=== PATIENT | male | born 1960 | race Caucasian/White ===

== ENCOUNTER 2024-06-04 15:47 | Emergency (ER) | payer OTHER, SELFPAY ==
[2024-06-04] VITALS (13 sets, daily range): BP systolic 107–123; BP diastolic 57–82; PULSE 89–113; RESP 12–20; TEMP 36.8–37.7; O2SAT 95–97; BMI 29.4
--- NOTE | 2024-06-04 16:33 | EKG_ITS ---
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
[2024-06-04 16:40] LABS: Add Manual Diff / Slide Review NO; Basophils Absolute Auto 100 /uL (0-100); Basophils Percent Auto 0.8 % (0-2); Eosinophils Absolute Auto 100 /uL (0-450); Eosinophils Percent Auto 0.6 % (2-4); Hematocrit 37.8 % (41-53); Hemoglobin 12.6 g/dL (13.5-17.5); Lymphocytes Absolute Auto 400 /uL (1100-4500); Lymphocytes Percent Auto 4.1 % (25-40); Mean Corpuscular HGB Conc 33.4 % (30-36); Mean Corpuscular Hemoglobin 30.5 PG (26-34); Mean Corpuscular Volume 91.3 fL (80-100); Monocytes Absolute Auto 800 /uL (0-900); Monocytes Percent Auto 7.3 % (3-14); Neutrophils Absolute Auto 9200 /uL (1500-7000); Neutrophils Percent Auto 87.2 % (50-75); Platelet Count 136 X10^3/uL (150-400); Red Blood Cell Count 4.14 X10^6/uL (4.5-5.9); Red Cell Distribution Width 14.7 % (11.6-14.8); White Blood Cell Count 10.6 X10^3/uL (4.5-11.0)
[2024-06-04 16:44] LABS: Alanine Aminotransferase 318 IU/L (<50); Albumin 3.9 g/dL (3.5-5.0); Alkaline Phosphatase 521 U/L (38-126); Aspartate Aminotransferase 140 IU/L (17-59); BUN Creatinine Ratio 21.3 (6-22); Bilirubin Total 4.2 mg/dL (0.2-1.3); Blood Urea Nitrogen 17 mg/dL (9-20); Calcium 8.5 mg/dL (8.4-10.2); Carbon Dioxide 23 mmol/L (22-32); Chloride 105 mmol/L (98-107); Estimated Glomerular Filt Rate > 60 mL/min (>60); Globulin 3.8 g/dL (1.7-4.1); Glucose 112 mg/dL (80-110); HEMOLYSIS 19 (0-50); Lipase 99 U/L (23-300); Potassium 4.1 mmol/L (3.4-5.1); Sodium 133 mmol/L (137-145); Total Protein 7.7 g/dL (6.3-8.2)
--- NOTE | 2024-06-04 17:44 | DI.CT.S_ITS ---
PROCEDURE: CT ABDOMEN PELVIS W CON INDICATIONS: chills, rigors, hepatic stent r and left ercp 05/29 TECHNIQUE: After the administration of intravenous contrast, axial sections acquired from the lung bases to the pubic symphysis. Coronal and sagittal reformats were performed. For radiation dose reduction, the following was used: automated exposure control, adjustment of mA and/or kV according to patient size. COMPARISON: [facility], MR, MR ABDOMEN MRCP, 02/27/2020, 13:08. FINDINGS: Image quality: Diagnostic Lower chest: Lung bases are unremarkable. Scattered scarring/atelectasis is present. Mildly patulous distal esophagus. Heart size Liver: Scattered cysts. Some of the cysts may have calcifications, for example on image 2/32. Attention on follow-up. Gallbladder and biliary system: Gallbladder is absent. Right and left biliary stents are present. There is moderate intrahepatic dilation. Pancreas: No ductal dilation Spleen: Nonenlarged Adrenals: No discrete nodules Kidneys: No solid mass or hydronephrosis Vessels and lymph nodes: The main portal vein appears diminutive at the bifurcation. No abdominal aortic aneurysm. No pathologic lymph nodes by size criteria in the field of view Bowel and peritoneum: No evidence of small bowel obstruction. Small hiatal hernia. No pathologic ascites. Nondilated appendix Body wall: Fat containing right inguinal and umbilical hernias. There is fluid in the right inguinal canal. Nonspecific fat stranding is seen in the right deep inguinal region, possibly representing inflammatory edema or postsurgical changes, correlate with history. Pelvis: Bladder is unremarkable. Prostate is not well evaluated on this study Bones: No acute or suspicious osseous finding. There are degenerative changes. IMPRESSION: Left and right biliary stents are present. There is moderate intrahepatic dilation. Cholangitis is possible. Correlate with any hilar obstructing mass. Liver cysts are present. The main portal vein is diminutive at the portal confluence. Consider abdominal MRI for follow-up. Other findings as above. Dictated by: Jeffery Brumfield M.D. on 06/04/2024 at 19:00 Approved by: Jeffery Brumfield M.D. on 06/04/2024 at 19:10
--- NOTE | 2024-06-04 17:48 | ED.RECABL ---
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 at [facility]. Patient has been tolerating well since. He has completed his oral amount Augmentin prescription. Patient states today started to have rigors felt like he was having chills. Had some increased pain. He states he feels much better at this time. Denies any abdominal back or flank pain, denies any nausea or vomiting. Denies any GI or urinary symptoms. States he does not feel like he is more jaundiced. Patient states he is supposed to return proximally a month to have an exchange of his stents. He states his only medication currently is for cholesterol. Allergy to codeine. No tobacco, positive for EtOH, no recreational drugs. Primary care is SHAR[facility] Ro[facility]. Related Data Home Medications Medication Instructions Recorded Confirmed pravastatin 40 mg tablet 40 mg PO BEDTIME 06/09/24 06/09/24 Previous Rx's Medication Instructions Recorded levofloxacin 750 mg tablet 750 mg PO DAILY #10 tabs 06/10/24 Allergies Allergy/AdvReac Type Severity Reaction Status Date / Time codeine Allergy Verified 06/04/24 15:57 Review of Systems <DO Fouzia Rivera Last Filed: 06/14/24 07:29> Review of Systems ROS Unobtainable: All systems reviewed & are unremarkable except as noted in HPI and below Patient History <DO Fouzia Rivera Last Filed: 06/14/24 07:29> Social History household members: spouse Smoking Status: Former smoker alcohol intake: never Smoking Status: Never smoker alcohol intake frequency: other Substance Use Type: does not use Exam <DO Fouzia Rivera Last Filed: 06/14/24 07:29> Narrative Exam Narrative: GENERAL: Alert and oriented x three, jaundiced male in mild distress. HEENT: Head normocephalic, atraumatic, scleral icterus, EOMI, pupils reactive, face symmetric, moist mucous membranes NECK: Supple, full range of motion CARDIOVASCULAR: Regular rate and rhythm without murmurs, rubs or gallops. RESPIRATORY: Breath sounds equal bilaterally, no wheezes rales or rhonchi. ABDOMEN: Soft, nontender. Normoactive bowel sounds all 4 quadrants. No guarding or rebound, rigidity, no mass : No CVA tenderness EXTREMITIES: Normal range of motion, no clubbing or edema. Neurovascularly intact NEUROLOGICAL: Cranial nerves II through XII grossly intact. Moving all extremities SKIN: Warm, dry, no petechiae, no rashes or lesions. Initial Vital Signs Initial Vital Signs: Vital Signs Temperature 99.8 F H 06/04/24 15:52 Pulse Rate 113 H 06/04/24 15:52 Respiratory Rate 18 06/04/24 15:52 Blood Pressure 123/71 06/04/24 15:52 Pulse Oximetry 97 06/04/24 15:52 Oxygen Delivery Method Room Air 06/04/24 15:52 <Poonam Coyne MD - Last Filed: 06/06/24 01:31> Initial Vital Signs Initial Vital Signs: Vital Signs Temperature 99.8 F H 06/04/24 15:52 Pulse Rate 113 H 06/04/24 15:52 Respiratory Rate 18 06/04/24 15:52 Blood Pressure 123/71 06/04/24 15:52 Pulse Oximetry 97 06/04/24 15:52 Oxygen Delivery Method Room Air 06/04/24 15:52 <Kelli Torrez DO - Last Filed: 06/08/24 19:55> Initial Vital Signs Initial Vital Signs: Vital Signs Temperature 99.8 F H 06/04/24 15:52 Pulse Rate 113 H 06/04/24 15:52 Respiratory Rate 18 06/04/24 15:52 Blood Pressure 123/71 06/04/24 15:52 Pulse Oximetry 97 06/04/24 15:52 Oxygen Delivery Method Room Air 06/04/24 15:52 Course <DO Fouzia Rivera Last Filed: 06/14/24 07:29> Orders Ordered: Discontinued Medications Sodium Chloride (Normal Saline 0.9%) 1,000 mls @ 1,000 mls/hr IV BOLUS ONE Stop: 06/04/24 18:37 Last Infusion: 06/04/24 19:46 Dose: Infused Documented By: Admin: 06/04/24 17:53 Dose: 1,000 mls/hr Documented By: TD Ondansetron HCl (Ondansetron 4 Mg/2 Ml Inj) 4 mg IV NOW PRN PRN Reason: Nausea And Vomiting Ondansetron HCl (Ondansetron 4 Mg Odt) 4 mg PO NOW PRN PRN Reason: Nausea And Vomiting Vital Signs Vital signs: Vital Signs - 8 hr 06/04/24 15:52 06/04/24 16:07 06/04/24 16:13 Temperature 99.8 F H Pulse Rate 113 H 104 H 98 H Respiratory Rate 18 12 Blood Pressure 123/71 Pulse Oximetry 97 96 96 Oxygen Delivery Method Room Air 06/04/24 16:13 06/04/24 16:30 06/04/24 16:30 Temperature Pulse Rate 97 H Respiratory Rate 15 Blood Pressure 116/66 111/82 Pulse Oximetry 97 Oxygen Delivery Method 06/04/24 17:00 06/04/24 17:00 06/04/24 17:30 Temperature Pulse Rate 98 H 95 H Respiratory Rate 15 19 Blood Pressure 110/62 Pulse Oximetry 97 96 Oxygen Delivery Method 06/04/24 17:30 06/04/24 17:50 06/04/24 18:00 Temperature 98.2 F Pulse Rate 92 H Respiratory Rate 20 Blood Pressure 107/60 Pulse Oximetry 96 Oxygen Delivery Method 06/04/24 18:00 06/04/24 18:30 06/04/24 19:00 Temperature Pulse Rate 93 H 91 H Respiratory Rate 13 17 Blood Pressure 113/57 L Pulse Oximetry 96 95 Oxygen Delivery Method 06/04/24 19:30 06/04/24 19:43 06/04/24 19:43 Temperature Pulse Rate 91 H 89 Respiratory Rate 17 19 Blood Pressure 108/61 Pulse Oximetry 96 97 Oxygen Delivery Method Room Air <Poonam Coyne MD - Last Filed: 06/06/24 01:31> Orders Ordered: Discontinued Medications Sodium Chloride (Normal Saline 0.9%) 1,000 mls @ 1,000 mls/hr IV BOLUS ONE Stop: 06/04/24 18:37 Last Infusion: 06/04/24 19:46 Dose: Infused Documented By: Admin: 06/04/24 17:53 Dose: 1,000 mls/hr Documented By: TD Ondansetron HCl (Ondansetron 4 Mg/2 Ml Inj) 4 mg IV NOW PRN PRN Reason: Nausea And Vomiting Ondansetron HCl (Ondansetron 4 Mg Odt) 4 mg PO NOW PRN PRN Reason: Nausea And Vomiting Vital Signs Vital signs: Vital Signs - 8 hr 06/04/24 15:52 06/04/24 16:07 06/04/24 16:13 Temperature 99.8 F H Pulse Rate 113 H 104 H 98 H Respiratory Rate 18 12 Blood Pressure 123/71 Pulse Oximetry 97 96 96 Oxygen Delivery Method Room Air 06/04/24 16:13 06/04/24 16:30 06/04/24 16:30 Temperature Pulse Rate 97 H Respiratory Rate 15 Blood Pressure 116/66 111/82 Pulse Oximetry 97 Oxygen Delivery Method 06/04/24 17:00 06/04/24 17:00 06/04/24 17:30 Temperature Pulse Rate 98 H 95 H Respiratory Rate 15 19 Blood Pressure 110/62 Pulse Oximetry 97 96 Oxygen Delivery Method 06/04/24 17:30 06/04/24 17:50 06/04/24 18:00 Temperature 98.2 F Pulse Rate 92 H Respiratory Rate 20 Blood Pressure 107/60 Pulse Oximetry 96 Oxygen Delivery Method 06/04/24 18:00 06/04/24 18:30 06/04/24 19:00 Temperature Pulse Rate 93 H 91 H Respiratory Rate 13 17 Blood Pressure 113/57 L Pulse Oximetry 96 95 Oxygen Delivery Method 06/04/24 19:30 06/04/24 19:43 06/04/24 19:43 Temperature Pulse Rate 91 H 89 Respiratory Rate 17 19 Blood Pressure 108/61 Pulse Oximetry 96 97 Oxygen Delivery Method Room Air <Kelli Torrez DO - Last Filed: 06/08/24 19:55> Orders Ordered: Discontinued Medications Sodium Chloride (Normal Saline 0.9%) 1,000 mls @ 1,000 mls/hr IV BOLUS ONE Stop: 06/04/24 18:37 Last Infusion: 06/04/24 19:46 Dose: Infused Documented By: Admin: 06/04/24 17:53 Dose: 1,000 mls/hr Documented By: TD Ondansetron HCl (Ondansetron 4 Mg/2 Ml Inj) 4 mg IV NOW PRN PRN Reason: Nausea And Vomiting Ondansetron HCl (Ondansetron 4 Mg Odt) 4 mg PO NOW PRN PRN Reason: Nausea And Vomiting Vital Signs Vital signs: Vital Signs - 8 hr 06/04/24 15:52 06/04/24 16:07 06/04/24 16:13 Temperature 99.8 F H Pulse Rate 113 H 104 H 98 H Respiratory Rate 18 12 Blood Pressure 123/71 Pulse Oximetry 97 96 96 Oxygen Delivery Method Room Air 06/04/24 16:13 06/04/24 16:30 06/04/24 16:30 Temperature Pulse Rate 97 H Respiratory Rate 15 Blood Pressure 116/66 111/82 Pulse Oximetry 97 Oxygen Delivery Method 06/04/24 17:00 06/04/24 17:00 06/04/24 17:30 Temperature Pulse Rate 98 H 95 H Respiratory Rate 15 19 Blood Pressure 110/62 Pulse Oximetry 97 96 Oxygen Delivery Method 06/04/24 17:30 06/04/24 17:50 06/04/24 18:00 Temperature 98.2 F Pulse Rate 92 H Respiratory Rate 20 Blood Pressure 107/60 Pulse Oximetry 96 Oxygen Delivery Method 06/04/24 18:00 06/04/24 18:30 06/04/24 19:00 Temperature Pulse Rate 93 H 91 H Respiratory Rate 13 17 Blood Pressure 113/57 L Pulse Oximetry 96 95 Oxygen Delivery Method 06/04/24 19:30 06/04/24 19:43 06/04/24 19:43 Temperature Pulse Rate 91 H 89 Respiratory Rate 17 19 Blood Pressure 108/61 Pulse Oximetry 96 97 Oxygen Delivery Method Room Air MDM - Recheck/Abnormal Lab/Rx <Poonam Chao DO - Last Filed: 06/14/24 07:29> Lab Data 06/04/24 16:10 06/04/24 16:10 Labs: Lab Results 06/04/24 Range/Units 16:10 WBC 10.6 (4.5-11.0) X10^3/uL RBC 4.14 L (4.5-5.9) X10^6/uL Hgb 12.6 L (13.5-17.5) g/dL Hct 37.8 L (41-53) % MCV 91.3 (80-100) fL MCH 30.5 (26-34) PG MCHC 33.4 (30-36) % RDW 14.7 (11.6-14.8) % Plt Count 136 L (150-400) X10^3/uL Neut % (Auto) 87.2 H (50-75) % Lymph % (Auto) 4.1 L (25-40) % [place] % (Auto) 7.3 (3-14) % Eos % (Auto) 0.6 L (2-4) % Baso % (Auto) 0.8 (0-2) % Neut # (Auto) 9200 H (2361-9618) /uL Lymph # (Auto) 400 L (7893-6385) /uL [place] # (Auto) 800 (0-900) /uL Eos # (Auto) 100 (0-450) /uL Baso # (Auto) 100 (0-100) /uL Sodium 133 L (137-145) mmol/L Potassium 4.1 (3.4-5.1) mmol/L Chloride 105 (98-107) mmol/L Carbon Dioxide 23 (22-32) mmol/L BUN 17 (9-20) mg/dL Creatinine 0.80 (0.66-1.25) mg/dL Estimated GFR > 60 (>60) mL/min BUN/Creatinine Ratio 21.3 (6-22) Glucose 112 H (80-110) mg/dL Lactate 1.2 (0.7-2.1) mmol/L Calcium 8.5 (8.4-10.2) mg/dL Total Bilirubin 4.2 H (0.2-1.3) mg/dL AST 140 H (17-59) IU/L ALT 318 H (<50) IU/L Alkaline Phosphatase 521 H (38-126) U/L Total Protein 7.7 (6.3-8.2) g/dL Albumin 3.9 (3.5-5.0) g/dL Globulin 3.8 (1.7-4.1) g/dL Albumin/Globulin Ratio 1.0 (1.0-2.8) Lipase 99 (23-300) U/L Procalcitonin 0.254 (<0.5) ng/mL Urine Dip Bedside Urine Glucose Negative Bedside Urine Bilirubin - Negative Bedside Urine Ketone - Negative Urine Specific [place] 1.015 Bedside Urine Occult Blood - Negative Bedside Urine pH 7.0 Bedside Urine Protein - Negative Bedside Urine Urobilinogen - Negative Bedside Urine Nitrite - Negative Bedside Urine Leukocytes - Negative Esterase ECG Data Attestation: I personally reviewed and interpreted this ECG as follows: Interpretation: Sinus rhythm rate of 98 [place] 164 QRS of 94 QTC 449. MDM Narrative Medical decision making narrative: White count of 10 hemoglobin of 12.6 platelets are 136. Na 133, electrolytes are normal creatinine 0.8, glucose of 112. Bilirubin of 4.2, AST 140, ALT 318, alk-phos 521 lipase 99. Patient received a L bolus, still somewhat hypotensive. EKG shows sinus rhythm. Ordered additional 30 cc/kilos bolus, lactate, protocol cultures were ordered. CT abdomen pelvis to evaluate for any signs of perforation, abscess or fluid collection with recent procedure. Patient signed out to Dr. Coyne while awaiting additional workup. <Poonam Coyne MD - Last Filed: 06/06/24 01:31> Lab Data Labs: Lab Results 06/04/24 Range/Units 16:10 WBC 10.6 (4.5-11.0) X10^3/uL RBC 4.14 L (4.5-5.9) X10^6/uL Hgb 12.6 L (13.5-17.5) g/dL Hct 37.8 L (41-53) % MCV 91.3 (80-100) fL MCH 30.5 (26-34) PG MCHC 33.4 (30-36) % RDW 14.7 (11.6-14.8) % Plt Count 136 L (150-400) X10^3/uL Neut % (Auto) 87.2 H (50-75) % Lymph % (Auto) 4.1 L (25-40) % [place] % (Auto) 7.3 (3-14) % Eos % (Auto) 0.6 L (2-4) % Baso % (Auto) 0.8 (0-2) % Neut # (Auto) 9200 H (8631-8590) /uL Lymph # (Auto) 400 L (8611-4132) /uL [place] # (Auto) 800 (0-900) /uL Eos # (Auto) 100 (0-450) /uL Baso # (Auto) 100 (0-100) /uL Sodium 133 L (137-145) mmol/L Potassium 4.1 (3.4-5.1) mmol/L Chloride 105 (98-107) mmol/L Carbon Dioxide 23 (22-32) mmol/L BUN 17 (9-20) mg/dL Creatinine 0.80 (0.66-1.25) mg/dL Estimated GFR > 60 (>60) mL/min BUN/Creatinine Ratio 21.3 (6-22) Glucose 112 H (80-110) mg/dL Lactate 1.2 (0.7-2.1) mmol/L Calcium 8.5 (8.4-10.2) mg/dL Total Bilirubin 4.2 H (0.2-1.3) mg/dL AST 140 H (17-59) IU/L ALT 318 H (<50) IU/L Alkaline Phosphatase 521 H (38-126) U/L Total Protein 7.7 (6.3-8.2) g/dL Albumin 3.9 (3.5-5.0) g/dL Globulin 3.8 (1.7-4.1) g/dL Albumin/Globulin Ratio 1.0 (1.0-2.8) Lipase 99 (23-300) U/L Procalcitonin 0.254 (<0.5) ng/mL Urine Dip Bedside Urine Glucose Negative Bedside Urine Bilirubin - Negative Bedside Urine Ketone - Negative Urine Specific Harman 1.015 Bedside Urine Occult Blood - Negative Bedside Urine pH 7.0 Bedside Urine Protein - Negative Bedside Urine Urobilinogen - Negative Bedside Urine Nitrite - Negative Bedside Urine Leukocytes - Negative Esterase [facility] Narrative Medical decision making narrative: White count of 10 hemoglobin of 12.6 platelets are 136. Na 133, electrolytes are normal creatinine 0.8, glucose of 112. Bilirubin of 4.2, AST 140, ALT 318, alk-phos 521 lipase 99. Patient received a L bolus, still somewhat hypotensive. EKG shows sinus rhythm. Ordered additional 30 cc/kilos bolus, lactate, protocol cultures were ordered. CT abdomen pelvis to evaluate for any signs of perforation, abscess or fluid collection with recent procedure. Patient signed out to Dr. Coyne while awaiting additional workup. Dr. Coyne -care of patient was signed out to me. Independent review of patient and chart performed. No leukocytosis, procalcitonin 0.254. There is some biliary dilation on CT abdomen and pelvis, however this is expected at patient's postoperative course. Patient reassessed, resting comfortably in bed, states that he feels fine and back to his baseline. He has had no episodes of chills or discomfort since he has been in the emergency department. Patient and counseled on results of all labs and imaging at bedside, recommended close follow up with GI team for further management. Patient is scheduled in about 3 weeks for stent replacement. <Kelli Torrez, DO - Last Filed: 06/08/24 19:55> Lab Data Labs: Lab Results 06/04/24 Range/Units 16:10 WBC 10.6 (4.5-11.0) X10^3/uL RBC 4.14 L (4.5-5.9) X10^6/uL Hgb 12.6 L (13.5-17.5) g/dL Hct 37.8 L (41-53) % MCV 91.3 (80-100) fL MCH 30.5 (26-34) PG MCHC 33.4 (30-36) % RDW 14.7 (11.6-14.8) % Plt Count 136 L (150-400) X10^3/uL Neut % (Auto) 87.2 H (50-75) % Lymph % (Auto) 4.1 L (25-40) % [place] % (Auto) 7.3 (3-14) % Eos % (Auto) 0.6 L (2-4) % Baso % (Auto) 0.8 (0-2) % Neut # (Auto) 9200 H (6073-7397) /uL Lymph # (Auto) 400 L (1068-1201) /uL [place] # (Auto) 800 (0-900) /uL Eos # (Auto) 100 (0-450) /uL Baso # (Auto) 100 (0-100) /uL Sodium 133 L (137-145) mmol/L Potassium 4.1 (3.4-5.1) mmol/L Chloride 105 (98-107) mmol/L Carbon Dioxide 23 (22-32) mmol/L BUN 17 (9-20) mg/dL Creatinine 0.80 (0.66-1.25) mg/dL Estimated GFR > 60 (>60) mL/min BUN/Creatinine Ratio 21.3 (6-22) Glucose 112 H (80-110) mg/dL Lactate 1.2 (0.7-2.1) mmol/L Calcium 8.5 (8.4-10.2) mg/dL Total Bilirubin 4.2 H (0.2-1.3) mg/dL AST 140 H (17-59) IU/L ALT 318 H (<50) IU/L Alkaline Phosphatase 521 H (38-126) U/L Total Protein 7.7 (6.3-8.2) g/dL Albumin 3.9 (3.5-5.0) g/dL Globulin 3.8 (1.7-4.1) g/dL Albumin/Globulin Ratio 1.0 (1.0-2.8) Lipase 99 (23-300) U/L Procalcitonin 0.254 (<0.5) ng/mL Urine Dip Bedside Urine Glucose Negative Bedside Urine Bilirubin - Negative Bedside Urine Ketone - Negative Urine Specific Har[place] 1.015 Bedside Urine Occult Blood - Negative Bedside Urine pH 7.0 Bedside Urine Protein - Negative Bedside Urine Urobilinogen - Negative Bedside Urine Nitrite - Negative Bedside Urine Leukocytes - Negative Esterase MDM Narrative Medical decision making narrative: White count of 10 hemoglobin of 12.6 platelets are 136. Na 133, electrolytes are normal creatinine 0.8, glucose of 112. Bilirubin of 4.2, AST 140, ALT 318, alk-phos 521 lipase 99. Patient received a L bolus, still somewhat hypotensive. EKG shows sinus rhythm. Ordered additional 30 cc/kilos bolus, lactate, protocol cultures were ordered. CT abdomen pelvis to evaluate for any signs of perforation, abscess or fluid collection with recent procedure. Patient signed out to Dr. Coyne while awaiting additional workup. Dr. Coyne -care of patient was signed out to me. Independent review of patient and chart performed. No leukocytosis, procalcitonin 0.254. There is some biliary dilation on CT abdomen and pelvis, however this is expected at patient's postoperative course. Patient reassessed, resting comfortably in bed, states that he feels fine and back to his baseline. He has had no episodes of chills or discomfort since he has been in the emergency department. Patient and counseled on results of all labs and imaging at bedside, recommended close follow up with GI team for further management. Patient is scheduled in about [address] replacement[address] Dr. Torrez 06/08/24 20:00 I called and spoke with patient's in regards to blood cultures which are positive x2 for Gram-negative bacilli. reports he is actually doing very well he has an appointment with his PCP tomorrow at 9:00 a.m.. I encouraged repeat blood cultures possible antibiotics and possible re-evaluation in the ED. At this time she denies any fever he seems to be mentating appropriately and overall seems to be improving. Discharge Plan Departure Patient Disposition: Home Clinical Impression: Chills, History of biliary stent insertion Instructions: DI for Fever (Symptom) -- Adult Activity Restrictions/Additional Instructions: Your CT and lab results today were reassuring. You did not have a fever here today. Follow up as scheduled with your GI specialists in [facility]. If you notice returning fever, abdominal pain, or worsening jaundice please return for repeat evaluation. Prescriptions: No Action pravastatin 40 mg Tablet 40 mg PO BEDTIME levofloxacin 750 mg tablet 750 mg PO DAILY Qty: 10 0RF Referrals: Katie Oglesby PA-C [Primary Care Provider] - Stand Alone Forms: Patient Portal/API
[2024-06-04] MEDS: SODIUM CHLORIDE 0.9% 1,000 ML 1000 ML IV (17:53)
[2024-06-04 18:28] LABS: Lactate (Lactic Acid) 1.2 mmol/L (0.7-2.1)
[2024-06-04 18:44] LABS: Procalcitonin 0.254 ng/mL (<0.5)
== END 2024-06-04 20:29 | disposition home or self-care (01) ==
PROVIDERS: Emergency Medicine; Emergency Provider Emergency Medicine; PCP Physician Assistant Medical
DX: R68.83 Chills (without fever) (principal); R10.9 Unspecified abdominal pain; Z96.89 Presence of other specified functional implants
CPT/HCPCS: 36415; 74177; 80053; 81003; 83605; 83690; 84145; 85025; 87040; 87077; 87186; 93005; 93010; 96360; 96361; 99284; Q9967

== ENCOUNTER 2024-06-09 12:14 | Observation (INO) | payer OTHER, SELFPAY ==
[2024-06-09 12:32] VITALS: BP 129/75; PULSE 91; RESP 16; TEMP 36.5; O2SAT 99; BMI 27.3
--- NOTE | 2024-06-09 12:39 | EKG_ITS ---
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
--- NOTE | 2024-06-09 12:39 | DI.RAD.S_ITS ---
PROCEDURE: XR CHEST 1V INDICATIONS: suspected sepsis TECHNIQUE: One view of the chest was acquired. COMPARISON: None. FINDINGS: Surgical changes and devices: None. Lungs and pleura: Linear left basilar opacity likely atelectasis. Mediastinum: Mediastinal contours appear normal. Heart size is normal. Bones and chest wall: No suspicious bony lesions. Overlying soft tissues appear unremarkable. IMPRESSION: No acute pulmonary process. Dictated by: Rand Harris M.D. on 06/09/2024 at 13:23 Approved by: Rand Harris M.D. on 06/09/2024 at 13:23
--- NOTE | 2024-06-09 13:14 | ED_ITS ---
HPI - Recheck/Abnormal Lab/Rx General Chief Complaint: Recheck/Abnormal Lab/Rx Stated Complaint: returning, antibiotics for blood infect sent by Dr Donovan Seen by Provider: 06/09/24 12:53 Source: patient Mode of arrival: Ambulatory History of Present Illness HPI narrative: Patient 64-year-old male with recent biliary stent presents today with positive blood cultures. He was seen evaluated here on June 04 he grew Hafnia paralvei. On the when he was evaluated he was febrile and overall did not feel well. He was not discharged home on antibiotics however both he and report that he is doing well. No fevers, he seems to be eating and drinking. He went to his primary care office appointment today and she sent him here to the ED for probable IV antibiotics. Today he is normal stable vitals. 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 Mazariegos at [facility] Related Data Home Medications Medication Instructions Recorded Confirmed pravastatin 40 mg tablet 40 mg PO BEDTIME 06/09/24 06/09/24 Allergies Allergy/AdvReac Type Severity Reaction Status Date / Time codeine Allergy Verified 06/04/24 15:57 Patient History Social History household members: spouse Smoking Status: Former smoker alcohol intake: never Smoking Status: Former smoker alcohol intake frequency: other Substance Use Type: does not use Exam Initial Vital Signs Initial Vital Signs: Vital Signs Temperature 97.7 F 06/09/24 12:32 Pulse Rate 91 H 06/09/24 12:32 Respiratory Rate 16 06/09/24 12:32 Blood Pressure 129/75 06/09/24 12:32 Pulse Oximetry 99 06/09/24 12:32 Oxygen Delivery Method Room Air 06/09/24 12:32 GENERAL: Alert mildly jaundiced 64-year-old male CARDIOVASCULAR: peripheral pulses in tact, cap refill <2 sec RESPIRATORY: No respiratory distress, speaks in full sentences without difficulty ABDOMEN: Soft, nontender, no guarding or rebound EXTREMITIES: Normal range of motion, no clubbing or edema. Neurovascularly intact NEUROLOGICAL: Cranial nerves II through XII grossly intact. Normal gait and speech. SKIN: Warm, dry, no petechiae, no rashes or lesions. Course Orders Ordered: ED Orders 06/09/24 12:39 XR chest 1V Stat EKG-12 Lead Stat RT Consult Eval and Treat NOW 06/09/24 13:10 Complete Blood Count AUTO DIFF Stat Comprehensive Metabolic Panel Stat Lactate (Lactic Acid) Stat Lipase Stat PTT Partial Thromboplastin Michael Stat Procalcitonin Stat Prothrombin Time INR Stat 06/09/24 13:20 Blood Culture Stat Heparin Sodium (Porcine) (Heparin 5,000 Unit/Ml Vial) 5,000 unit SUBCUT BID MITCHELL Last Admin: 06/09/24 15:08 Dose: 5,000 unit Documented By: SULMA Sodium Chloride (Normal Saline 0.45%) 1,000 mls @ 100 mls/hr IV CONT MITCHELL Last Admin: 06/09/24 15:07 Dose: 100 mls/hr Documented By: SULMA Ceftriaxone Sodium 2,000 mg/ (Sodium Chloride) 100 mls @ 200 mls/hr IV Q24H MITCHELL Naloxone HCl (Naloxone 0.4 Mg/Ml Vial) 0.2 mg IV Q2MIN PRN PRN Reason: Opiate Reversal Naloxone HCl (Naloxone 0.4 Mg/Ml Vial) 0.2 mg IV Q2MIN PRN PRN Reason: Opiate Reversal Ondansetron HCl (Ondansetron 4 Mg/2 Ml Inj) 4 mg IV NOW PRN PRN Reason: Nausea And Vomiting Ondansetron HCl (Ondansetron 4 Mg Odt) 4 mg SL NOW PRN PRN Reason: Nausea And Vomiting Ondansetron HCl (Ondansetron 4 Mg/2 Ml Inj) 4 mg IV Q8HR PRN PRN Reason: Nausea And Vomiting Discontinued Medications Sodium Chloride (Normal Saline 0.9%) 1,000 mls @ 1,000 mls/hr IV BOLUS ONE Stop: 06/09/24 13:38 Last Admin: 06/09/24 14:11 Dose: 1,000 mls/hr Documented By: JAMILAH Ceftriaxone Sodium 2,000 mg/ (Sodium Chloride) 100 mls @ 200 mls/hr IV NOW ONE Stop: 06/09/24 12:54 Last Admin: 06/09/24 14:11 Dose: 200 mls/hr Documented By: JAMILAH Vital Signs Vital signs: Vital Signs - 8 hr 06/09/24 12:32 Temperature 97.7 F Pulse Rate 91 H Respiratory Rate 16 Blood Pressure 129/75 Pulse Oximetry 99 Oxygen Delivery Method Room Air MDM - Recheck/Abnormal Lab/Rx Lab Data 06/09/24 13:10 06/09/24 13:10 Labs: Lab Results 06/09/24 Range/Units 13:10 WBC 9.7 (4.5-11.0) X10^3/uL RBC 4.06 L (4.5-5.9) X10^6/uL Hgb 12.2 L (13.5-17.5) g/dL Hct 36.1 L (41-53) % MCV 88.7 (80-100) fL MCH 30.1 (26-34) PG MCHC 33.9 (30-36) % RDW 15.5 H (11.6-14.8) % Plt Count 136 L (150-400) X10^3/uL Neut % (Auto) 77.8 H (50-75) % Lymph % (Auto) 8.3 L (25-40) % [place] % (Auto) 11.9 (3-14) % Eos % (Auto) 0.9 L (2-4) % Baso % (Auto) 1.1 (0-2) % Neut # (Auto) 7600 H (8214-4266) /uL Lymph # (Auto) 800 L (5133-8305) /uL [place] # (Auto) 1200 H (0-900) /uL Eos # (Auto) 100 (0-450) /uL Baso # (Auto) 100 (0-100) /uL PT 13.1 H (9.4-12.5) SECONDS INR 1.1 (0.9-1.3) APTT 26 (25.1-36.5) SECONDS Sodium 136 L (137-145) mmol/L Potassium 3.9 (3.4-5.1) mmol/L Chloride 104 (98-107) mmol/L Carbon Dioxide 22 (22-32) mmol/L BUN 17 (9-20) mg/dL Creatinine 0.65 L (0.66-1.25) mg/dL Estimated GFR > 60 (>60) mL/min BUN/Creatinine Ratio 26.2 H (6-22) Glucose 108 (80-110) mg/dL Lactate 1.8 (0.7-2.1) mmol/L Calcium 8.8 (8.4-10.2) mg/dL Total Bilirubin 3.7 H (0.2-1.3) mg/dL AST 99 H (17-59) IU/L ALT 194 H (<50) IU/L Alkaline Phosphatase 591 H (38-126) U/L Total Protein 7.4 (6.3-8.2) g/dL Albumin 3.7 (3.5-5.0) g/dL Globulin 3.7 (1.7-4.1) g/dL Albumin/Globulin Ratio 1.0 (1.0-2.8) Lipase 85 (23-300) U/L Procalcitonin 0.823 H (<0.5) ng/mL Imaging Data Chest x-ray: Radiologist's Impression: PROCEDURE: XR CHEST 1V INDICATIONS: suspected sepsis TECHNIQUE: One view of the chest was acquired. COMPARISON: None. FINDINGS: Surgical changes and devices: None. Lungs and pleura: Linear left basilar opacity likely atelectasis. Mediastinum: Mediastinal contours appear normal. Heart size is normal. Bones and chest wall: No suspicious bony lesions. Overlying soft tissues appear unremarkable. IMPRESSION: No acute pulmonary process. Dictated by: Rand Harris M.D. on 06/09/2024 at 13:23 ECG Data Attestation: I personally reviewed and interpreted this ECG as follows: Prior ECG tracings: available for review Interpretation: Normal sinus rhythm rate 79 CO interval 162 QRS [address] changes MDM Narrative Medical decision making narrative: Patient is 64-year-old male presenting today with positive Gram-negative blood cultures. There is drug resistance cephalosporins but is sensitive to Rocephin. He clinically has improved from a few days ago but still slightly jaundiced. Blood work reviewed no leukocytosis WBC 9.7 hemoglobin 12.2 hematocrit 36 point platelets 136, sodium 136 potassium 3.9 chloride 104 carbon dioxide 22 BUN 17 creatinine 0.6 lactate 1.8 previously 1.2 AST 3.7 AST 99 ALT 194 alk-phos 591, these are actually all improved from prior previous bili was 4.2 Procalcitonin elevated 0.8-3 previously 0.25 Repeat blood cultures pending Dr. Saleh updated on patient's blood culture results blood work is pending he accepts patient Discharge Plan Departure Patient Disposition: Admitted As Inpatient Clinical Impression: Bacteremia Admit Date/Time: 06/09/24 13:16 Admit Provider: Brent Saleh
[2024-06-09 13:35] LABS: Add Manual Diff / Slide Review NO; Basophils Absolute Auto 100 /uL (0-100); Basophils Percent Auto 1.1 % (0-2); Eosinophils Absolute Auto 100 /uL (0-450); Eosinophils Percent Auto 0.9 % (2-4); Hematocrit 36.1 % (41-53); Hemoglobin 12.2 g/dL (13.5-17.5); Lymphocytes Absolute Auto 800 /uL (1100-4500); Lymphocytes Percent Auto 8.3 % (25-40); Mean Corpuscular HGB Conc 33.9 % (30-36); Mean Corpuscular Hemoglobin 30.1 PG (26-34); Mean Corpuscular Volume 88.7 fL (80-100); Monocytes Absolute Auto 1200 /uL (0-900); Monocytes Percent Auto 11.9 % (3-14); Neutrophils Absolute Auto 7600 /uL (1500-7000); Neutrophils Percent Auto 77.8 % (50-75); Platelet Count 136 X10^3/uL (150-400); Red Blood Cell Count 4.06 X10^6/uL (4.5-5.9); Red Cell Distribution Width 15.5 % (11.6-14.8); White Blood Cell Count 9.7 X10^3/uL (4.5-11.0)
[2024-06-09 13:38] LABS: INR 1.1 (0.9-1.3); Prothrombin Time 13.1 SECONDS (9.4-12.5)
[2024-06-09 13:41] LABS: PTT Partial Thromboplastin Tim 26 SECONDS (25.1-36.5)
[2024-06-09 13:43] LABS: Alanine Aminotransferase 194 IU/L (<50); Albumin 3.7 g/dL (3.5-5.0); Alkaline Phosphatase 591 U/L (38-126); Aspartate Aminotransferase 99 IU/L (17-59); BUN Creatinine Ratio 26.2 (6-22); Bilirubin Total 3.7 mg/dL (0.2-1.3); Blood Urea Nitrogen 17 mg/dL (9-20); Calcium 8.8 mg/dL (8.4-10.2); Carbon Dioxide 22 mmol/L (22-32); Chloride 104 mmol/L (98-107); Estimated Glomerular Filt Rate > 60 mL/min (>60); Globulin 3.7 g/dL (1.7-4.1); Glucose 108 mg/dL (80-110); HEMOLYSIS 26 (0-50); Lipase 85 U/L (23-300); Potassium 3.9 mmol/L (3.4-5.1); Sodium 136 mmol/L (137-145); Total Protein 7.4 g/dL (6.3-8.2)
[2024-06-09 13:45] VITALS: BMI 27.3
[2024-06-09 13:45] LABS: Lactate (Lactic Acid) 1.8 mmol/L (0.7-2.1)
--- NOTE | 2024-06-09 13:46 | PC.NURSE ---
This RN was asked to place two lines and draw labs and blood cultures. This RN collected the blood and placed the lines and then called report to RHODA Dickerson. No assessments were made in the ED. Patient is returning and directly admitted to the floor from ED. Please defer to provider assessment.
--- NOTE | 2024-06-09 13:52 | PC.NURSE ---
Patient arrived from ED ambulating to room 216 at 1350. He is A&OX4, denies pain., VSS, afebrile. He is oriented to the room,and admission assessment completed. at bedside supportive. Continuous monitoring.
[2024-06-09 14:00] LABS: Procalcitonin 0.823 ng/mL (<0.5)
[2024-06-09] MEDS: SODIUM CHLORIDE 0.9% 1,000 ML 1000 ML IV (14:11)
[2024-06-09] MEDS: cefTRIAXone 2,000 MG in SODIUM CHLORIDE 0.9% 100 ML 200 MG IV (14:11)
[2024-06-09 14:15] VITALS: BP 138/79; PULSE 78; RESP 16; TEMP 36.7; O2SAT 99
--- NOTE | 2024-06-09 14:20 | PM.HP.1 ---
History of Present Illness History of Present Illness Chief complaint: returning, antibiotics for blood infect sent by Narrative: From ED doctor (06/04): 64-year-old male history of remote primary biliary sphincterotomy and recent ERCP, biopsy of the hepatic duct bifurcation and plastic stents placed in the right and left hepatic duct with severe biliary strictures that were malignant appearing 05/29/[address] Mazariegos at [facility]. Patient has been tolerating well since. He has completed his oral amount Augmentin prescription. Patient states today started to have rigors felt like he was having chills. Had some increased pain. He states he feels much better at this time. Denies any abdominal back or flank pain, denies any nausea or vomiting. Denies any GI or urinary symptoms. States he does not feel like he is more jaundiced. Patient states he is supposed to return proximally a month to have an exchange of his stents. He states his only medication currently is for cholesterol. Allergy to codeine. No tobacco, positive for EtOH, no recreational drugs. Primary care is SHARON Roa. Additional information: He was called back for positive blood cultures. Specifically, he had 2 cultures with Yu lindi. Clinically he feels better. He was given ceftriaxone in the emergency department. His WBC is 9.7. He was afebrile with a T of 98.0?. His bilirubin is 3.7 with an AST of 99 and ALT of 194. His alk-phos is 591. A CT scan on 06/04 revealed left and right biliary stents with moderate intrahepatic dilation. His shares that this presented as a painless jaundice several months ago. This led to hospitalization at [place] and stenting on the 29 of May. The patient has bilirubin was over 12 before the stents and was down to about 8 the day after the stents. The patient denies any abdominal pain or recurrent fevers or chills. He was on Augmentin for 5 days after the procedure, he was recurrent fevers and chills occurred just after that prompting his ER visit 2 days ago. He is felt great since that visit and being on antibiotics again. 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 COUNTS INCLUDE 234 BEDS AT THE [facility] Social History household members: spouse Smoking Status: Former smoker alcohol intake: never Meds Home Medications and Allergies Home Medications Medication Instructions Recorded Confirmed Type pravastatin 40 mg tablet 40 mg PO BEDTIME 06/09/24 06/09/24 History Allergies Allergy/AdvReac Type Severity Reaction Status Date / Time codeine Allergy Verified 06/04/24 15:57 Review of Systems Review of Systems Narrative: All else reviewed and otherwise unremarkable except as noted in the history and physical. Exam Vital Signs (past 8 hours): - 06/09/24 12:32 06/09/24 14:15 Temperature 97.7 F 98.0 F Pulse Rate 91 H 78 Respiratory Rate 16 16 Blood Pressure 129/75 138/79 Pulse Oximetry 99 99 Oxygen Delivery Method Room Air Oxygen Flow Rate 0 Oxygen Delivery Method Room Air Oxygen Flow Rate 0 Narrative Exam Narrative: NAD, alert and oriented, fluent speech, calm. Jaundice, icteric sclera. Normocephalic skull, EOMI, symmetric pupils. Oropharynx unremarkable, no droop. Neck supple, midline trachea, no adenopathy. Lungs clear, normal rate and effort. Heart regular, no murmur gallop or rub. Abdomen is soft, non distended and non tender. Extremities are free of edema. Skin is free of rash or lesions. Joints are not swollen or deformed. Judgment appears to be normal. Objective Labs 06/09/24 13:10 06/09/24 13:10 Labs: Laboratory Results - last 24 hr 06/09/24 13:10 WBC 9.7 RBC 4.06 L Hgb 12.2 L Hct 36.1 L MCV 88.7 MCH 30.1 MCHC 33.9 RDW 15.5 H Plt Count 136 L Neut % (Auto) 77.8 H Lymph % (Auto) 8.3 L [place] % (Auto) 11.9 Eos % (Auto) 0.9 L Baso % (Auto) 1.1 Neut # (Auto) 7600 H Lymph # (Auto) 800 L [place] # (Auto) 1200 H Eos # (Auto) 100 Baso # (Auto) 100 PT 13.1 H INR 1.1 APTT 26 Sodium 136 L Potassium 3.9 Chloride 104 Carbon Dioxide 22 BUN 17 Creatinine 0.65 L Estimated GFR > 60 BUN/Creatinine Ratio 26.2 H Glucose 108 Lactate 1.8 Calcium 8.8 Total Bilirubin 3.7 H AST 99 H ALT 194 H Alkaline Phosphatase 591 H Total Protein 7.4 Albumin 3.7 Globulin 3.7 Albumin/Globulin Ratio 1.0 Lipase 85 Procalcitonin 0.823 H Assessment & Plan Assessment & Plan narrative: 1. Bacteremia, present on admission and active. 2. Probable cholangitis, present on admission and active. 3. Cholangiocarcinoma with [address], present on admission and active. Plan: -continue IV fluids and antibiotics. -have left a message for Dr. Mazariegos to discuss whether or not he would transfer for bile duct exchange. Waiting to hear on a call back. -in the meantime, trend bilirubin. An increase we will confirm bile duct blockage, and a decrease would be supportive of ongoing IV antibiotics and possibly no transfer to [facility]. Full code, is proxy decision maker. Admitted to observation status, 1 night he is required to pursue decision making and next steps. Time-Based Coding :: 40 min spent with patient and on the chart (including review of chart, obtaining history, exam, reviewing outside data, placing orders, documenting exam and treatment plan, and counseling patient) on 06/09. Quality VTE Deep Vein Thrombosis/Pulmonary Embolism Present on Admission: No MIPS - Admit I confirm the patient?s Advance Care Plan is present, Code status is documented, Surrogate decision maker is in patient?s record [If Yes, STOP here]: Yes MIPS - Meds 'Current medications' to include all prescriptions, [id number] products, herbals, cannabis/cannabidiol products, and vitamin/mineral/dietary (nutritional) supplements. I have utilized all available resources to obtain, update, or review the patient?s current medications. [If Yes, STOP here]: Yes
[2024-06-09] MEDS: SODIUM CHLORIDE 0.45% 1,000 ML 100 ML IV (15:07)
[2024-06-09] MEDS: HEPARIN 5,000 UNIT/ML VIAL 5000 UNIT SUBCUT ×2 (15:08→21:29)
[2024-06-09 20:00] VITALS: BP 93/61; PULSE 86; RESP 18; TEMP 38.2; O2SAT 97
[2024-06-10 01:00] VITALS: BP 109/62; PULSE 86; RESP 18; TEMP 37.1; O2SAT 98
[2024-06-10 08:00] VITALS: BP 116/70; PULSE 68; RESP 16; TEMP 36.5; O2SAT 97
[2024-06-10 08:26] LABS: Hematocrit 32.2 % (41-53); Hemoglobin 10.9 g/dL (13.5-17.5); Mean Corpuscular Hemoglobin 29.9 PG (26-34); Platelet Count 146 X10^3/uL (150-400); Red Blood Cell Count 3.66 X10^6/uL (4.5-5.9); Red Cell Distribution Width 15.4 % (11.6-14.8); White Blood Cell Count 6.6 X10^3/uL (4.5-11.0)
[2024-06-10 08:50] LABS: Alanine Aminotransferase 153 IU/L (<50); Albumin Globulin Ratio 0.9 (1.0-2.8); Alkaline Phosphatase 534 U/L (38-126); Aspartate Aminotransferase 81 IU/L (17-59); Blood Urea Nitrogen 12 mg/dL (9-20); Calcium 8.5 mg/dL (8.4-10.2); Carbon Dioxide 22 mmol/L (22-32); Chloride 109 mmol/L (98-107); Estimated Glomerular Filt Rate > 60 mL/min (>60); Globulin 3.5 g/dL (1.7-4.1); Glucose 102 mg/dL (80-110); HEMOLYSIS < 15 (0-50); Potassium 3.7 mmol/L (3.4-5.1); Sodium 135 mmol/L (137-145); Total Protein 6.5 g/dL (6.3-8.2)
[2024-06-10] MEDS: SODIUM CHLORIDE 0.9% FLUSH 10 ML IV (09:46)
[2024-06-10] MEDS: cefTRIAXone 2,000 MG in SODIUM CHLORIDE 0.9% 100 ML 200 MG IV (09:46)
--- NOTE | 2024-06-10 14:20 | P.DS_ITS ---
History of Present Illness History of Present Illness Chief complaint: returning, antibiotics for blood infect sent by Narrative: From ED doctor (06/04): 64-year-old male history of remote primary biliary sphincterotomy and recent ERCP, biopsy of the hepatic duct bifurcation and plastic stents placed in the right and left hepatic duct with severe biliary strictures that were malignant appearing 05/29/[address] Mazariegos at [facility]. Patient has been tolerating well since. He has completed his oral amount Augmentin prescription. Patient states today started to have rigors felt like he was having chills. Had some increased pain. He states he feels much better at this time. Denies any abdominal back or flank pain, denies any nausea or vomiting. Denies any GI or urinary symptoms. States he does not feel like he is more jaundiced. Patient states he is supposed to return proximally a month to have an exchange of his stents. He states his only medication currently is for cholesterol. Allergy to codeine. No tobacco, positive for EtOH, no recreational drugs. Primary care is SHARON Roa. Additional information: He was called back for positive blood cultures. Specifically, he had 2 cultures with Yu paralveronicai. Clinically he feels better. He was given ceftriaxone in the emergency department. His WBC is 9.7. He was afebrile with a T of 98.0?. His bilirubin is 3.7 with an AST of 99 and ALT of 194. His alk-phos is 591. A CT scan on 06/04 revealed left and right biliary stents with moderate intrahepatic dilation. His shares that this presented as a painless jaundice several months ago. This led to hospitalization at [place] and stenting on the 29 of May. The patient has bilirubin was over 12 before the stents and was down to about 8 the day after the stents. The patient denies any abdominal pain or recurrent fevers or chills. He was on Augmentin for 5 days after the procedure, he was recurrent fevers and chills occurred just after that prompting his ER visit 2 days ago. He is felt great since that visit and being on antibiotics again. 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 Discharge Providers Provider Date of admission: 06/09/24 13:16 Discharge Date: 06/10/24 Primary care physician: Katie Oglesby PA-C Consults: Telephone guidance from Dr. Nowak, gastroenterology at [facility]. Discharge provider: Brent Saleh MD Summary Hospital Course Discharge Diagnosis: 1. Bacteremia (Hafnia paralevi), present on admission and active. 2. Probable cholangitis, present on admission and active. 3. Cholangiocarcinoma with [address], present on admission and active. Hospital Course: He was admitted and treated with ceftriaxone for 2 days for his bacteremia. He was discussed with Dr. Nowak. We trended his bilirubin which did decrease from 4.2-3.7. This is reassuring that his stents were functional. His rate of bilirubin descent appears to be quite slow but is moving in the right direction. He had a low-grade fever but no rigors and his white count was on remarkable. We discussed treatment options for him in the day of discharge and she recommended 5 days of IV antibiotics with 10-14 days total course of antibiotics to complete. His organism is very sensitive to fluoroquinolones. He will return for ceftriaxone on a daily basis the dates being 06/11 through 06/13 and then take levofloxacin 7 days. Status at Discharge Cognitive/behavioral status at discharge: oriented Functional status at discharge: independent ambulation Overall status at discharge: patient is back to baseline Time Spent with Patient Time spent: Greater than 30 minutes Exam Vital Signs (past 8 hours): - 06/10/24 08:00 Temperature 97.7 F Pulse Rate 68 Respiratory Rate 16 Blood Pressure 116/70 Pulse Oximetry 97 Oxygen Flow Rate 0 Oxygen Delivery Method Room Air Oxygen Flow Rate 0 Narrative Exam Narrative: NAD, alert and oriented. Fluent speech. Mild jaundice. Lungs are clear, normal rate and effort. Heart is regular, no murmur gallop or rub. Abdomen is soft, non distended. Extremities are free of edema. Objective Imaging CT scan - abdomen: Radiologist's impression: 06/04: IMPRESSION: Left and right biliary stents are present. There is moderate intrahepatic dilation. Cholangitis is possible. Correlate with any hilar obstructing mass. Liver cysts are present. The main portal vein is diminutive at the portal confluence. Consider abdominal MRI for follow-up. Labs 06/10/24 08:10 06/10/24 08:10 Labs: Laboratory Results - last 24 hr 06/10/24 08:10 WBC 6.6 RBC 3.66 L Hgb 10.9 L Hct 32.2 L MCV 88.0 MCH 29.9 MCHC 34.0 RDW 15.4 H Plt Count 146 L Sodium 135 L Potassium 3.7 Chloride 109 H Carbon Dioxide 22 BUN 12 Creatinine 0.63 L Estimated GFR > 60 BUN/Creatinine Ratio 19.0 Glucose 102 Calcium 8.5 Total Bilirubin 3.0 H AST 81 H ALT 153 H Alkaline Phosphatase 534 H Total Protein 6.5 Albumin 3.0 L Globulin 3.5 Albumin/Globulin Ratio 0.9 L [facility] Social History household members: spouse Smoking Status: Former smoker alcohol intake: never Discharge Assessment & Plan Assessment and Plan Assessment: 1. Bacteremia (Hafnia paralevi), present on admission and active. 2. Probable cholangitis, present on admission and active. 3. Cholangiocarcinoma with [address], present on admission and active. Plan of Treatment: He will return for ceftriaxone 1 g IV daily June 11 or June 13. Then he will take levofloxacin 750 mg orally daily for 10 additional days. He should see PCP within 7 days. His GI doctor, Dr. Mazariegos, [place]. I spoke with his covering doctor, Dr. Nowak. Her cell number is [phone]. Discharge Plan Discharge Plan Patient Disposition: Home Provider Discharge Comment: Stable for discharge home, we will complete 3 additional days of IV antibiotics in Infusion Center and a total of 10 days of antibiotics with the rest being oral levofloxacin. Discharge orders & Medications Prescriptions: New levofloxacin 750 mg tablet 750 mg PO DAILY Qty: 10 0RF Continued pravastatin 40 mg Tablet 40 mg PO BEDTIME Medication counseling provided by Pharmacist: No Follow up/Referrals: Katie Oglesby PA-C [Primary Care Provider] - Discharge Health Status Multidrug resistant organism: No MDRO Diet/Activity/Treatments Diet: Regular Activity: As tolerated. Skin/Wound/Dressing Care Report to your healthcare provider any signs of infection, such as:: chills, fever and night sweats Visit Report/Discharge Packet Instructions: DI for Sepsis -- Adult Stand Alone Forms: Patient Portal/API Discharge Data Primary Care Provider: Katie Oglesby Attending Provider: Brent Saleh Admit Date/Time: 06/09/24 13:16 Quality VTE Deep Vein Thrombosis/Pulmonary Embolism Present on Admission: No
--- NOTE | 2024-06-10 15:25 | CM.DANOTE ---
DCP Assessment Note Pt is a 64yo M here for Bacteremia following recent stent placement at [facility] on 05/29/24. PCP Katie Oglesby Payer Varsha and self pay BAIT DIGGER reviewed EMR. Per hospitalist, could dc today if OP abx arranged for 3 days for his dc. Q24 Ceftriaxone 2,000mg from 06/11/24-06/13/24. Hospitalist completed IV abx provider order form. Per lead BAIT DIGGER, inf clinic here at [place] closed for the week. Infusions would be done here on the floor, like it is done on the weekends. BAIT DIGGER coordinated with Sharron from inf clinic, will get pt established in their system on her end. BAIT DIGGER faxed her provider order form. Placed order form in scanning folder. BAIT DIGGER coordinated with Varsha. Authorized services. Auth number [id number]. BAIT DIGGER coordinated with charge auditor, report best time for infusion is 11am. BAIT DIGGER met with pt and spouse in room. Live together in [place]. Confirmed agreement with plan to come here daily for next 3 days to get IV abx. Confirm 11am appt here and will report at the main nurses station. Deny other CM needs or questions at this time. P: pt to dc home today with spouse support. will f/u with OP infusions here at for 3 days. No further CM needs identified at this time. CM team will follow as needed FAHAD Rosario Discharge Planning/Care Management CM Discharge Assessment Start: 06/10/24 15:22 Freq: Status: Active Protocol: Document 06/10/24 15:22 (Rec: 06/10/24 15:25 [id number]) Discharge Planning Assessment Assigned Javascript Application Developer FAHAD Messina DPOA/Assigned Designee Name Petty spouse Contact Information [phone] Advance Directives? No History Provided By Patient Prior Living Arrangements House Household Members spouse Independent with ADL's Yes Is patient alert and oriented? Yes Comment varsha auth for OP ABX Discharge Plan Home Transportation Arrangement spouse in POV Referrals Initiated Other Additional Comment OP inf clinic Review Status In Process Please Provide Date Initial DC 06/10/24 Assessment Was Performed Next Review Type Continued Stay Review
--- NOTE | 2024-06-10 15:28 | PC.NURSE ---
Addendum entered by Floridalma Garcia R.N. 06/10/24 15:33: Pt escorted to hospital exit via wheelchair by staff member at 1534, spouse driving pt home in personal vehicle. Original Note: Discharge instructions given to patient and pt's on sepsis, levaquin, and where to go for IV infusions. Patient to receive 3 days of IV abxs starting tomorrow (06/11) and was instructed to arrive at main nurses station at 1100 each day. Pt requested that both IVs be removed, offered to wrap one of the IVs in order to preserve it for IV abx but pt and pt's spouse declined. IVs removed. Pt clothing and cell phone with pt.
--- NOTE | 2024-06-17 07:21 | PC.NURSE ---
Late Entry: Ceftriaxone infusion initiated 06/09 at 1411 complete at 1456. Ceftriaxone infusion initiated 06/13 at 0946 complete at 1017.
== END 2024-06-10 15:34 | disposition home or self-care (01) ==
LOC: ED 12:53 → AC 13:49
PROVIDERS: Admitting Provider Hospitalist; Emergency Provider Emergency Medicine; PCP Physician Assistant Medical; Referring Provider Emergency Medicine; Visit Provider Hospitalist
DX: C22.1 Intrahepatic bile duct carcinoma (principal); R78.81 Bacteremia; B96.89 Other specified bacterial agents as the cause of diseases classified elsewhere
CPT/HCPCS: 36415; 71045; 80053; 83605; 83690; 84145; 85025; 85027; 85610; 85730; 87040; 93005; 96365; 96366; 99283; 99284; G0378; J0696; J1644; J7050